=== PATIENT | female | born 1935 | race Caucasian/White ===

== ENCOUNTER 2017-03-26 06:29 | Day surgery (SDC) | payer OTHER, MEDICARE ==
[2017-03-21 11:52] VITALS: BMI 30.2
[2017-03-26] MEDS: CIPROFLOXACIN 0.3% EYE DROPS 5 ML BOTTLE ONE ×3 (07:05→07:15)
[2017-03-26] MEDS: CYCLOPENTOLATE 2% OPHTH SOLN 2 ML BOTTLE ONE ×3 (07:05→07:15)
[2017-03-26] MEDS: PHENYLEPHRINE 2.5% OPHTH SOLN 15 ML BOTTLE ONE ×3 (07:05→07:15)
[2017-03-26] MEDS: TROPICAMIDE 1% OPHTH SOLN 15 ML BOTTLE ONE ×3 (07:05→07:15)
[2017-03-26] MEDS ORDERED: LIDOCAINE 1% P/F 10 MG/ML VIAL ONE (07:20)
[2017-03-26] MEDS ORDERED: LIDOCAINE HCL 2% JELLY 10 ML CARTRIDGE ONE (07:20)
[2017-03-26] MEDS ORDERED: TETRACAINE 0.5% OPHTH SOLN 2 ML BOTTLE ONE (07:20)
[2017-03-26] MEDS ORDERED: CARBACHOL 0.01% INTRA-OCULAR 1.5 ML VIAL ONE (07:21)
[2017-03-26] MEDS ORDERED: ACETYLCHOLINE 1:100 INTRA-OCUL 20 MG/2 ML KIT ONE (07:21)
[2017-03-26] MEDS ORDERED: NEO/POLYMYX B SULF/DEXAMETH OPHTHALMIC 5ML BOTTLE ONE (07:31)
[2017-03-26] MEDS ORDERED: BSS (NA/CA/MG/K) BALANCED SALT SOLUTION OPHTH SOLN 15 ML BOTTLE ONE (07:31)
[2017-03-26] MEDS ORDERED: MIDAZOLAM HCL 2 MG/2 ML SINGLE DOSE VIAL ONE ×3 (08:23→09:11)
[2017-03-26] MEDS ORDERED: PROPOFOL 20 ML ONE (09:12)
[2017-03-26 11:51] VITALS: TEMP 97.7
[2017-03-26 12:03] VITALS: PULSE 61
[2017-03-26 12:07] VITALS: BP 110/48
--- NOTE | 2017-03-26 13:39 | OP ---
DATE OF OPERATION: 03/26/2017 OPERATIVE PROCEDURE: Lens phacoemulsification with posterior chamber intraocular lens placement right eye. PREOPERATIVE DIAGNOSIS: Visually significant cataract of right eye. POSTOPERATIVE DIAGNOSIS: Visually significant cataract of right eye. SURGEON: Lex Alejandro M.D. ANESTHESIA: MAC PROCEDURE: The patient was brought to the operating room and placed under monitored anesthesia care by Anesthesia. A drop of tetracaine was then placed over the right eye. The patient was then prepped and draped in the usual sterile manner. A speculum was then placed over the right eye. The eye was then well irrigated with copious amounts of BSS (balanced salt solution). The operating microscope was then moved into position. A paracentesis was performed using a 15 degree blade. At this point 0.5 mL of 1% preservative-free lidocaine was injected into the anterior chamber. Amvisc Plus was then injected into the anterior chamber. A clear corneal incision was then formed using a 2.2 mm keratome. A capsulorrhexis was then performed in a continuous circular fashion beginning with a cystotome and completed with Utrata forceps. Hydrodissection was then performed using BSS on a cannula. The phaco probe was then introduced through the corneal wound and the cataract was removed using the phaco chop technique. Approximately 3 seconds of absolute phaco time was used. The remaining cortex was then removed using irrigation and aspiration with an I/A probe. The capsule was then filled with regular Amvisc and the capsule was noted to be intact. A previously selected foldable posterior chamber intraocular lens was then injected into the capsule through the corneal wound using a lens injector. It was then dialed into position using a Sinskey hook. The Amvisc was then removed using irrigation and aspiration. Miostat was then injected through the paracentesis to constrict the pupil. The paracentesis and corneal wound were then hydrated and noted to be watertight. A drop of Maxitrol was then placed over the eye. The speculum was removed and clear shield was taped over the eye. The patient tolerated the procedure well and there were no surgical complications. The patient was asked to follow up in my office the next day. LEX ALEJANDRO M.D. LINUS/[id number]
== END 2017-03-26 10:15 | disposition home or self-care (01) ==
LOC: FASU 06:29
PROVIDERS: ATTEND Ophthalmology
PROC: 08RJ3JZ Replacement of Right Lens with Synthetic Substitute, Percutaneous Approach (ICD-10-PCS; principal; 2017-03-26 08:32)
DX: H26.8 Other specified cataract (principal)

== ENCOUNTER 2017-07-11 16:18 | Inpatient (IN) | payer OTHER, MEDICARE ==
--- NOTE | 2017-07-11 16:21 | PDOC ---
History of Present Illness - General History Source: Patient Exam Limitations: No Limitations - History of Present Illness Initial Comments: 07/11/17 17:47 History is limited due to pt's severe dementia. Most of history from pt's . The patient is an 82 year old female with past medical history of hypertension, basal cell carcinoma, and dementia who arrives to the ED from her PCPs office for complaints of palpitations and found to have HR 151 in the office. As per the patients , they had traveled to [place] by car and when they were walking on the beach the patient felt very strong palpitations that almost made her pass out 4 days ago. He also notes increasing LE edema over the last 4 days as well. In her PCPs office, the patient was noted to be in atrial flutter. The patients denies any history of chest pain or similar symptoms in the past and states patient can usually communicate certain symptoms such as pain. PCP: Dr. Abel Emerson <Lisseth Kaur - Last Filed: 07/11/17 20:56> <Deidra Mcclelland - Last Filed: 07/11/17 22:19> - General Chief Complaint: Chest Pain Stated Complaint: EKG CHANGES FROM PMD'S OFFICE Time Seen by Provider: 07/11/17 16:21 Past History <Lisseth Kaur - Last Filed: 07/11/17 20:56> - Past Medical History Anemia: No Asthma: No Cancer: Yes (BASAL CELL CA TOP OF HEAD) Cardiac Disorders: No CVA: No COPD: No CHF: No Dementia: Yes (ALZHEIMERS) Diabetes: No GI Disorders: No Disorders: No HTN: Yes Hypercholesterolemia: No Liver Disease: No Seizures: No Thyroid Disease: No - Surgical History Abdominal Surgery: No Appendectomy: No Cardiac Surgery: No Cholecystectomy: No Lung Surgery: No Neurologic Surgery: No Orthopedic Surgery: No - Psycho/Social/Smoking Cessation Hx Anxiety: No Suicidal Ideation: No Smoking History: Never smoked Have you smoked in the past 12 months: No Hx Alcohol Use: No Drug/Substance Use Hx: No Substance Use Type: None Hx Substance Use Treatment: No <Deidra Mcclelland - Last Filed: 07/11/17 22:19> - Past Medical History Allergies/Adverse Reactions: Allergies Allergy/AdvReac Type Severity Reaction Status Date / Time Penicillins Allergy Intermediate Hives Verified 07/11/17 16:20 shellfish derived Allergy Intermediate Hives Verified 07/11/17 16:20 Sulfa (Sulfonamide Allergy Intermediate Hives Verified 07/11/17 16:20 Antibiotics) etodolac [From Lodine] Allergy Verified 07/11/17 16:20 Review of Systems - Review of Systems Able to Perform ROS?: Yes Comments:: 07/11/17 17:47 GENERAL/CONSTITUTIONAL: No fever or chills. No weakness. HEAD, EYES, EARS, NOSE AND THROAT: No change in vision. No ear pain or discharge. No sore throat. CARDIOVASCULAR: Present: palpitations No chest pain or shortness of breath. RESPIRATORY: No cough, wheezing, or hemoptysis. GASTROINTESTINAL: No nausea, vomiting, diarrhea or constipation. GENITOURINARY: No dysuria, frequency, or change in urination. MUSCULOSKELETAL: +LE edema. No neck or back pain. SKIN: No rash NEUROLOGIC: No headache, vertigo, loss of consciousness, or change in strength/ sensation. ENDOCRINE: No increased thirst. No abnormal weight change. HEMATOLOGIC/LYMPHATIC: No anemia, easy bleeding, or history of blood clots. ALLERGIC/IMMUNOLOGIC: No hives or skin allergy. All Other Systems: Reviewed and Negative <Lisseth Kaur - Last Filed: 07/11/17 20:56> *Physical Exam - Vital Signs Last Vital Signs Temp Pulse Resp BP Pulse Ox 98.7 F 114 H 18 106/67 99 07/11/17 16:19 07/11/17 17:21 07/11/17 17:00 07/11/17 17:21 07/11/17 17:21 - Physical Exam Comments: 07/11/17 17:48 GENERAL: AOx1 to name only, in no acute distress, can answer yes or no questions and follow simple commands HEAD: No signs of trauma EYES: PERRLA, EOMI, sclera anicteric, conjunctiva clear ENT: Auricles normal inspection, hearing grossly normal, nares patent, oropharynx clear without exudates. Moist mucosa NECK: Normal ROM, supple, no lymphadenopathy, JVD, or masses LUNGS: Diminished breath sounds at right lung base. No wheezes, and no crackles HEART: Tachycardic to 151, regular, no murmurs, rubs or gallops ABDOMEN: Soft, nontender, normoactive bowel sounds. No guarding, no rebound. No masses EXTREMITIES: 1+ edema of bilateral lower extremities, left greater than right. Normal range of motion.. No clubbing or cyanosis. No cords, erythema, or tenderness NEUROLOGICAL: Normal speech, cranial nerves intact, negative pronator drift, 5/ 5 strength in all 4 extremities, normal sensation to light touch in all 4 extremities, normal cerebellar exam, normal gait, normal reflexes and tone SKIN: Warm, Dry, normal turgor, no rashes or lesions noted. <Lisseth Kaur - Last Filed: 07/11/17 20:56> Heart Score/ECG Review #1 07/11/17 1637: Atrial flutter with 2:1 block, rate 151, normal axis. EKG machine reading inferior PABLO as "STEMI" but these are likely rate dependent elevations. Compared to EKG from 03/24/17, Flutter is new, pt previously in sinus rhythm. #2 07/11/17 17:27 Atrial flutter with variable block, rate 111, normal axis, no PABLO (post diltiazem) <Deidra Mcclelland - Last Filed: 07/11/17 22:19> ED Treatment Course - LABORATORY CBC & Chemistry Diagram: 07/11/17 16:40 07/11/17 16:40 - ADDITIONAL ORDERS Additional order review: Laboratory Results 07/11/17 07/11/17 07/11/17 16:40 16:40 16:40 INR 1.05 PTT (Actin FS) Sodium 136 Potassium 5.1 Chloride 102 Carbon Dioxide 23 Anion Gap 11 BUN 43 H D Creatinine 1.5 H D Creat Clearance w eGFR 33.33 Random Glucose 94 Calcium 9.2 Magnesium 1.9 D Total Bilirubin 0.5 D AST 28 D ALT 45 H D Alkaline Phosphatase 86 D Creatine Kinase 63 Total Protein 7.3 Albumin 3.5 Anti-A Titer Cancelled Blood Type Cancelled Antibody Screen Cancelled Spec Expiration Date Cancelled 07/11/17 16:40 INR PTT (Actin FS) 25.4 L Sodium Potassium Chloride Carbon Dioxide Anion Gap BUN Creatinine Creat Clearance w eGFR Random Glucose Calcium Magnesium Total Bilirubin AST ALT Alkaline Phosphatase Creatine Kinase Total Protein Albumin Anti-A Titer Blood Type Antibody Screen Spec Expiration Date 07/11/17 16:40 RBC 3.59 L MCV 90.6 MCHC 33.7 RDW 12.6 MPV 8.4 D Neutrophils % 66.5 Lymphocytes % 21.3 Monocytes % 8.9 Eosinophils % 2.3 Basophils % 1.0 - RADIOLOGY Radiograph Interpretation: 07/11/17 20:30 Venous doppler exam of bilateral lower extremities as reviewed by Dr. Garcia reports DVT in left leg with involvement of common femoral vein and greater saphenous vein. The right leg is negative for DVT. 07/11/17 20:56 CT/CTA of Chest as reviewed by Dr. Garcia reports no evidence of PE. Possible mild cardiomegaly and thyromegaly. - Medications Given in the ED: ED Medications Discontinued Medications Generic Name Dose Route Start Last Admin Trade Name Sylvesterq PRN Reason Stop Dose Admin Diltiazem HCl 10 mg 07/11/17 16:34 07/11/17 16:45 Cardizem Injection - IVPUSH 07/11/17 16:35 10 mg ONCE ONE Administration Diltiazem HCl 30 mg 07/11/17 16:50 07/11/17 17:32 Cardizem - PO 07/11/17 16:51 30 mg ONCE ONE Administration Sodium Chloride 500 ml 07/11/17 16:51 07/11/17 16:45 Normal Saline - IV 07/11/17 16:52 500 ml ONCE ONE Administration <Lisseth Kaur - Last Filed: 07/11/17 20:56> - LABORATORY CBC & Chemistry Diagram: 07/11/17 16:40 07/11/17 16:40 <Deidra Mcclelland - Last Filed: 07/11/17 22:19> Medical Decision Making - Critical Care Time Total Critical Care Time (minutes): 40 Critical Care Statement: The care of this patient involved high complexity decision making to prevent further life threatening deterioration of the patient 's condition and/or to evaluate & treat vital organ system(s) failure or risk of failure. - Medical Decision Making 07/11/17 17:29 82yo F hx HTN, dementia, hypothyroidism p/w atrial flutter with 2:1 block with a rate 151, good response to diltiazem with HR down to 90s-110s. Pt ordered for PO dilitiazem. Pt denies CP or SOB. Exam with tachycardia and L>R LE edema. Unclear etiology of atrial flutter but differential is wide, including but not limited to DVT and PE, CHF, ACS, or infection such as PNA or UTI. 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 Ward for further management. <Deidra Mcclelland - Last Filed: 07/11/17 22:19> *DC/Admit/Observation/Transfer - Attestations Scribe Attestion: 07/11/17 17:48 Documentation prepared by Lisseth Kaur, acting as medical authorization specialist for Deidra Mcclelland MD. <Lisseth Kaur - Last Filed: 07/11/17 20:56> - Attestations Physician Attestion: 07/11/17 22:18 I, Dr. Deidra Mcclelland MD, attest that this document has been prepared under my direction and personally reviewed by me in its entirety. I further attest, that it accurately reflects all work, treatment, procedures and medical decision -making performed by me. <Deidra Mcclelland - Last Filed: 07/11/17 22:19> Diagnosis at time of Disposition: Atrial fibrillation with RVR DVT (deep venous thrombosis) Qualifiers: Qualified Code(s): I82.412 - Acute embolism and thrombosis of left femoral vein - Discharge Dispostion Condition at time of disposition: Fair - Referrals Referrals: Abel Emerson MD [Primary Care Provider] -
[2017-07-11] MEDS ORDERED: dilTIAZem HCL 50 MG/10 ML - 10 ML VIAL IVPUSH ONE ×2 (16:34→17:54)
[2017-07-11] MEDS ORDERED: dilTIAZem HCL 50 MG/10 ML - 10 ML VIAL ONE (16:41)
[2017-07-11] MEDS ORDERED: dilTIAZem HCL 30 MG TABLET (FP) PO ONE (16:50)
[2017-07-11] MEDS ORDERED: SODIUM CHLORIDE 0.9% 1000 ML INFUS.BAG IV ONE (16:51)
[2017-07-11 16:59] VITALS: BMI 28.3
[2017-07-11] MEDS ORDERED: dilTIAZem HCL 30 MG TABLET (FP) ONE ×2 (17:11→21:27)
[2017-07-11 17:20] LABS: EOSINOPHIL 2.3 % (0-4.5); MCH 30.5 pg (25.7-33.7); MCHC 33.7 g/dl (32.0-36.0); MEAN CELL VOLUME 90.6 fl (80-96); MEAN PLT VOLUME 8.4 fl (7.5-11.1); NEUTROPHILS 66.5 % (42.8-82.8); PLATELET COUNT 189 K/MM3 (134-434); RDW 12.6 % (11.6-15.6); WHITE BLOOD COUNT 7.9 K/mm3 (4.0-10.8)
[2017-07-11 17:34] LABS: ALBUMIN 3.5 g/dl (3.5-5.0); ALK PHOS 86 U/L (32-92); ANION GAP 11 (8-16); BILIRUBIN,TOTAL 0.5 mg/dl (0.2-1.0); CALCIUM 9.2 mg/dl (8.4-10.2); CO2 23 mmol/L (22-28); CPK 63 IU/L (26-192); CREATININE 1.5 mg/dl (0.6-1.3); GLUCOSE,RANDOM 94 mg/dl (74-106); MAGNESIUM 1.9 mg/dL (1.8-2.4); SGOT/AST 28 U/L (10-42); SGPT/ALT 45 U/L (10-40); TOT PROT 7.3 g/dl (6.4-8.3)
[2017-07-11 17:38] LABS: INR 1.05 (0.82-1.09); PROTHROMBIN TIME (PATIENT) 11.7 SEC (10.2-13.0)
[2017-07-11 18:02] LABS: TROPONIN I (DFP) < 0.03 ng/ml (0.03-0.50)
[2017-07-11 19:04] LABS: PH,URINE 5.5 (4.5-8); URINE BILIRUBIN Negative (NEGATIVE); URINE GLUCOSE (UA) Negative (NEGATIVE); URINE KETONE Negative (NEGATIVE); URINE NITRITE Positive (NEGATIVE); URINE PROTEIN Negative (NEGATIVE); URINE UROBILINOGEN 0.2 (0.2-1.0)
[2017-07-11 19:05] LABS: URINE APPEARANCE CLOUDY; URINE BLOOD Trace-intact (NEGATIVE); URINE COLOR YELLOW; URINE LEUK ESTERASE 2+ (NEGATIVE)
[2017-07-11] MEDS ORDERED: ENOXAPARIN NA (PORCINE) 60 MG/0.6 ML DISP.SYRIN SQ ONE ×2 (19:15→19:17)
[2017-07-11] MEDS: ENOXAPARIN NA (PORCINE) 60 MG/0.6 ML DISP.SYRIN SQ SCH (19:30)
[2017-07-11 19:43] LABS: THYROID STIMULATING HORMONE 1.33 uIU/ml (0.358-3.74)
[2017-07-11 19:57] LABS: URINE RBC 0-2 /hpf (0-3); URINE WBC 15-25 (3-5)
[2017-07-11 19:58] LABS: URINE BACTERIA MODERATE /hpf (NEGATIVE)
[2017-07-11] MEDS ORDERED: METOPROLOL TARTRATE 5 MG/5 ML VIAL ONE ×2 (20:32→21:39)
[2017-07-11] MEDS ORDERED: METOPROLOL TARTRATE 5 MG/5 ML VIAL IVPUSH ONE ×2 (20:38→21:33)
[2017-07-11] MEDS ORDERED: OLANZapine 5 MG TABLET PO ONE (20:40)
--- NOTE | 2017-07-11 20:53 | PDOC ---
*Physical Exam - Vital Signs Last Vital Signs Temp Pulse Resp BP Pulse Ox 98.7 F 154 H 18 131/88 98 07/11/17 16:19 07/11/17 20:38 07/11/17 19:36 07/11/17 20:38 07/11/17 19:36 <Lisseth Kaur - Last Filed: 07/11/17 21:01> - Vital Signs Last Vital Signs Temp Pulse Resp BP Pulse Ox 98.7 F 154 H 18 131/88 98 07/11/17 16:19 07/11/17 20:38 07/11/17 19:36 07/11/17 20:38 07/11/17 19:36 <Deepika Roman - Last Filed: 07/12/17 06:47> ED Treatment Course - LABORATORY CBC & Chemistry Diagram: 07/11/17 16:40 07/11/17 16:40 - ADDITIONAL ORDERS Additional order review: Laboratory Results 07/11/17 07/11/17 07/11/17 18:53 18:53 17:45 INR PTT (Actin FS) Sodium Potassium Chloride Carbon Dioxide Anion Gap BUN Creatinine Creat Clearance w eGFR Random Glucose Calcium Magnesium Total Bilirubin AST ALT Alkaline Phosphatase Creatine Kinase Troponin I B-Natriuretic Peptide Total Protein Albumin TSH Urine Color Yellow Urine Appearance Cloudy Urine pH 5.5 Ur Specific [place] 1.010 Urine Protein Negative Urine Glucose (UA) Negative Urine Ketones Negative Urine Blood Trace-intact H Urine Nitrite Positive Urine Bilirubin Negative Urine Urobilinogen 0.2 Ur Leukocyte Esterase 2+ H Urine RBC 0-2 Urine WBC 15-25 Ur Epithelial Cells Few Urine Bacteria Moderate Stool Occult Blood Negative Anti-A Titer Blood Type A POSITIVE Antibody Screen Spec Expiration Date 07/11/17 07/11/17 07/11/17 17:40 16:47 16:40 INR PTT (Actin FS) Sodium 136 Potassium 5.1 Chloride 102 Carbon Dioxide 23 Anion Gap 11 BUN 43 H D Creatinine 1.5 H D Creat Clearance w eGFR 33.33 Random Glucose 94 Calcium 9.2 Magnesium 1.9 D Total Bilirubin 0.5 D AST 28 D ALT 45 H D Alkaline Phosphatase 86 D Creatine Kinase 63 Troponin I Cancelled B-Natriuretic Peptide 5711.16 H Total Protein 7.3 Albumin 3.5 TSH 1.33 D Urine Color Urine Appearance Urine pH Ur Specific [place] Urine Protein Urine Glucose (UA) Urine Ketones Urine Blood Urine Nitrite Urine Bilirubin Urine Urobilinogen Ur Leukocyte Esterase Urine RBC Urine WBC Ur Epithelial Cells Urine Bacteria Stool Occult Blood Anti-A Titer Blood Type A POSITIVE Antibody Screen Negative Spec Expiration Date 07/11/17 07/11/17 07/11/17 16:40 16:40 16:40 INR 1.05 PTT (Actin FS) 25.4 L Sodium Potassium Chloride Carbon Dioxide Anion Gap BUN Creatinine Creat Clearance w eGFR Random Glucose Calcium Magnesium Total Bilirubin AST ALT Alkaline Phosphatase Creatine Kinase Troponin I B-Natriuretic Peptide Total Protein Albumin TSH Urine Color Urine Appearance Urine pH Ur Specific [place] Urine Protein Urine Glucose (UA) Urine Ketones Urine Blood Urine Nitrite Urine Bilirubin Urine Urobilinogen Ur Leukocyte Esterase Urine RBC Urine WBC Ur Epithelial Cells Urine Bacteria Stool Occult Blood Anti-A Titer Cancelled Blood Type Cancelled Antibody Screen Cancelled Spec Expiration Date Cancelled 07/11/17 16:40 RBC 3.59 L MCV 90.6 MCHC 33.7 RDW 12.6 MPV 8.4 D Neutrophils % 66.5 Lymphocytes % 21.3 Monocytes % 8.9 Eosinophils % 2.3 Basophils % 1.0 - RADIOLOGY Radiograph Interpretation: 07/11/17 20:56 CT/CTA of Chest as reviewed by Dr. Garcia reports no evidence of PE. Possible mild cardiomegaly and thyromegaly. - Medications Given in the ED: ED Medications Discontinued Medications Generic Name Dose Route Start Last Admin Trade Name Freq PRN Reason Stop Dose Admin Diltiazem HCl 10 mg 07/11/17 16:34 07/11/17 16:45 Cardizem Injection - IVPUSH 07/11/17 16:35 10 mg ONCE ONE Administration Diltiazem HCl 30 mg 07/11/17 16:50 07/11/17 17:32 Cardizem - PO 07/11/17 16:51 30 mg ONCE ONE Administration Diltiazem HCl 10 mg 07/11/17 17:54 07/11/17 18:10 Cardizem Injection - IVPUSH 07/11/17 17:55 10 mg ONCE ONE Administration Metoprolol Tartrate 5 mg 07/11/17 20:38 07/11/17 20:38 Lopressor Injection - IVPUSH 07/11/17 20:39 5 mg NOW ONE Administration Sodium Chloride 500 ml 07/11/17 16:51 07/11/17 16:45 Normal Saline - IV 07/11/17 16:52 500 ml ONCE ONE Administration <Lisseth Kaur - Last Filed: 07/11/17 21:01> - LABORATORY CBC & Chemistry Diagram: 07/11/17 16:40 07/11/17 16:40 - ADDITIONAL ORDERS Additional order review: Laboratory Results 07/11/17 07/11/17 07/11/17 18:53 18:53 17:45 INR PTT (Actin FS) Sodium Potassium Chloride Carbon Dioxide Anion Gap BUN Creatinine Creat Clearance w eGFR Random Glucose Calcium Magnesium Total Bilirubin AST ALT Alkaline Phosphatase Creatine Kinase Troponin I B-Natriuretic Peptide Total Protein Albumin TSH Urine Color Yellow Urine Appearance Cloudy Urine pH 5.5 Ur Specific [place] 1.010 Urine Protein Negative Urine Glucose (UA) Negative Urine Ketones Negative Urine Blood Trace-intact H Urine Nitrite Positive Urine Bilirubin Negative Urine Urobilinogen 0.2 Ur Leukocyte Esterase 2+ H Urine RBC 0-2 Urine WBC 15-25 Ur Epithelial Cells Few Urine Bacteria Moderate Stool Occult Blood Negative Anti-A Titer Blood Type A POSITIVE Antibody Screen Spec Expiration Date 07/11/17 07/11/17 07/11/17 17:40 16:47 16:40 INR PTT (Actin FS) Sodium 136 Potassium 5.1 Chloride 102 Carbon Dioxide 23 Anion Gap 11 BUN 43 H D Creatinine 1.5 H D Creat Clearance w eGFR 33.33 Random Glucose 94 Calcium 9.2 Magnesium 1.9 D Total Bilirubin 0.5 D AST 28 D ALT 45 H D Alkaline Phosphatase 86 D Creatine Kinase 63 Troponin I Cancelled B-Natriuretic Peptide 5711.16 H Total Protein 7.3 Albumin 3.5 TSH 1.33 D Urine Color Urine Appearance Urine pH Ur Specific [place] Urine Protein Urine Glucose (UA) Urine Ketones Urine Blood Urine Nitrite Urine Bilirubin Urine Urobilinogen Ur Leukocyte Esterase Urine RBC Urine WBC Ur Epithelial Cells Urine Bacteria Stool Occult Blood Anti-A Titer Blood Type A POSITIVE Antibody Screen Negative Spec Expiration Date 07/11/17 07/11/17 07/11/17 16:40 16:40 16:40 INR 1.05 PTT (Actin FS) 25.4 L Sodium Potassium Chloride Carbon Dioxide Anion Gap BUN Creatinine Creat Clearance w eGFR Random Glucose Calcium Magnesium Total Bilirubin AST ALT Alkaline Phosphatase Creatine Kinase Troponin I B-Natriuretic Peptide Total Protein Albumin TSH Urine Color Urine Appearance Urine pH Ur Specific [place] Urine Protein Urine Glucose (UA) Urine Ketones Urine Blood Urine Nitrite Urine Bilirubin Urine Urobilinogen Ur Leukocyte Esterase Urine RBC Urine WBC Ur Epithelial Cells Urine Bacteria Stool Occult Blood Anti-A Titer Cancelled Blood Type Cancelled Antibody Screen Cancelled Spec Expiration Date Cancelled 07/11/17 16:40 RBC 3.59 L MCV 90.6 MCHC 33.7 RDW 12.6 MPV 8.4 D Neutrophils % 66.5 Lymphocytes % 21.3 Monocytes % 8.9 Eosinophils % 2.3 Basophils % 1.0 - Medications Given in the ED: ED Medications Discontinued Medications Generic Name Dose Route Start Last Admin Trade Name Sylvesterq PRN Reason Stop Dose Admin Diltiazem HCl 10 mg 07/11/17 16:34 07/11/17 16:45 Cardizem Injection - IVPUSH 07/11/17 16:35 10 mg ONCE ONE Administration Diltiazem HCl 30 mg 07/11/17 16:50 07/11/17 17:32 Cardizem - PO 07/11/17 16:51 30 mg ONCE ONE Administration Diltiazem HCl 10 mg 07/11/17 17:54 07/11/17 18:10 Cardizem Injection - IVPUSH 07/11/17 17:55 10 mg ONCE ONE Administration Metoprolol Tartrate 5 mg 07/11/17 20:38 07/11/17 20:38 Lopressor Injection - IVPUSH 07/11/17 20:39 5 mg NOW ONE Administration Sodium Chloride 500 ml 07/11/17 16:51 07/11/17 16:45 Normal Saline - IV 07/11/17 16:52 500 ml ONCE ONE Administration <Deepika Roman - Last Filed: 07/12/17 06:47> Progress Note - Progress Note Progress Note: Documentation has been prepared under my direction and personally reviewed by me in its entirety. I attest that this documented accurately reflects all work, treatment, procedures and medical decision making <Deepika Roman - Last Filed: 07/12/17 06:47> Medical Decision Making - Medical Decision Making 07/11/17 21:01 [facility] Call returned promptly and case was discussed. <Lisseth Kaur - Last Filed: 07/11/17 21:01> - Medical Decision Making Care of this patient received from Dr. Mustafa. CT angiogram of the chest was performed to rule out pulmonary embolism. No evidence of pulmonary embolus found on this study. Patient continued to have A. fib/flutter at a rapid ventricular response( ranging from 110-150/per minute). She did not appear to be responsive to diltiazem either orally or IV. Patient given metoprolol 5 mg IV followed by an additional 5 mg IV after approximately one half hour. Repeat to be better response with the beta yasir. [facility] be [facility] to [facility] telemetry bed <Deepika Roman - Last Filed: 07/12/17 06:47> *DC/Admit/Observation/Transfer - Attestations Scribe Attestion: 07/11/17 20:57 Documentation prepared by Lisseth Kaur, acting as director medical economics for Deepika Roman MD. <Lisseth Kaur - Last Filed: 07/11/17 21:01> - Discharge Dispostion Admit: Yes <Deepika Roman - Last Filed: 07/12/17 06:47> Diagnosis at time of Disposition: Atrial fibrillation with RVR DVT (deep venous thrombosis) Qualifiers: DVT location: lower extremity Affected thrombotic vein of extremity: femoral Chronicity: acute Laterality: left Qualified Code(s): I82.412 - Acute embolism and thrombosis of left femoral vein - Discharge Dispostion Condition at time of disposition: Fair - Referrals - Patient Instructions - Post Discharge Activity
[2017-07-11] MEDS ORDERED: dilTIAZem HCL 30 MG TABLET (FP) PO SCH (22:00)
--- NOTE | 2017-07-11 23:30 | HP ---
CHIEF COMPLAINT: palpitations PCP: [facility] HISTORY OF PRESENT ILLNESS: This is an 82 year old female with a past medical history significant for HTN and Dementia presented to the ED with palpitations x 4 days. reported to ED staff that [place] had traveled to [place] and [place] the patient felt very strong palpitations that almost made her pass out 4 days ago. He denies any report of chest pain or SOB. Pt is confused on exam and unable to respond to ROS. Daughter is present and provided much of the information. ER course was notable for: (1) HR 150s upon arrival, ECG 2:1 flutter tx with cardizem 10mg IVP and 30mg po (2) US + DVT (3) CT no PE Recent Travel: [place] PAST MEDICAL HISTORY: HTN Dementia Basal Cell Carcinoma PAST SURGICAL HISTORY: appendectomy Age 20 B/L cataract Social History: Smoking: daughter denies Alcohol: 1/2 glass wine with dinner occasionally Drugs: daughter denies Family History: mother heart disease late 70s father with DM, age 65 sister comps hip sx brother , colon CA, mets to pancreas sister alive, no PMH Allergies Penicillins Allergy (Intermediate, Verified 07/11/17 16:20) Hives shellfish derived Allergy (Intermediate, Verified 07/11/17 16:20) Hives Sulfa (Sulfonamide Antibiotics) Allergy (Intermediate, Verified 07/11/17 16:20) Hives etodolac [From [facility]] Allergy (Verified 07/11/17 16:20) HOME MEDICATIONS: donepezil 10mg QD memantine 10mg BID zestril 30mg QD zyprexa 5mg QPM REVIEW OF SYSTEMS CONSTITUTIONAL: Absent: fever, chills, diaphoresis, generalized weakness, malaise, loss of appetite, weight change HEENT: Absent: rhinorrhea, nasal congestion, throat pain, throat swelling, difficulty swallowing, mouth swelling, ear pain, eye pain, visual changes CARDIOVASCULAR: palpitations, irregular heart rate Absent: chest pain, syncope, lightheadedness, peripheral edema RESPIRATORY: Absent: cough, shortness of breath, dyspnea with exertion, orthopnea, wheezing, stridor, hemoptysis GASTROINTESTINAL: Absent: abdominal pain, abdominal distension, nausea, vomiting, diarrhea, constipation, melena, hematochezia GENITOURINARY: Absent: dysuria, frequency, urgency, hesitancy, hematuria, flank pain, genital pain MUSCULOSKELETAL: Absent: myalgia, arthralgia, joint swelling, back pain, neck pain SKIN: Absent: rash, itching, pallor HEMATOLOGIC/IMMUNOLOGIC: Absent: easy bleeding, easy bruising, lymphadenopathy, frequent infections ENDOCRINE: Absent: unexplained weight gain, unexplained weight loss, heat intolerance, cold intolerance NEUROLOGIC: Absent: headache, focal weakness or paresthesias, dizziness, unsteady gait, seizure, mental status changes, bladder or bowel incontinence PSYCHIATRIC: Absent: anxiety, depression, suicidal or homicidal ideation, hallucinations. PHYSICAL EXAMINATION Vital Signs - 24 hr 3 07/11/17 07/11/17 07/11/17 16:19 16:45 17:00 Temperature 98.7 F Pulse Rate 151 H Pulse Rate [ 101 H Apical] Respiratory 20 18 Rate Blood Pressure 126/81 126/81 Blood Pressure 90/47 [Arm] O2 Sat by Pulse 99 99 Oximetry (%) 3 07/11/17 07/11/17 07/11/17 17:21 17:55 18:21 Temperature Pulse Rate Pulse Rate [ 114 H 146 H 126 H Apical] Respiratory 18 19 Rate Blood Pressure Blood Pressure 106/67 117/72 109/84 [Arm] O2 Sat by Pulse 99 96 98 Oximetry (%) 07/11/17 07/11/17 07/11/17 19:36 20:38 21:21 Temperature Pulse Rate 154 H Pulse Rate [ 110 H 124 H Apical] Respiratory 18 19 Rate Blood Pressure 131/88 Blood Pressure 113/88 121/75 [Arm] O2 Sat by Pulse 98 Oximetry (%) 07/11/17 07/11/17 21:44 22:44 Temperature 98.3 F Pulse Rate 124 H 116 H Pulse Rate [ Apical] Respiratory 18 Rate Blood Pressure 121/75 108/73 Blood Pressure [Arm] O2 Sat by Pulse 97 Oximetry (%) GENERAL: Awake, alert, and fully oriented, in no acute distress. HEAD: Normal with no signs of trauma. EYES: Pupils equal, round and reactive to light, extraocular movements intact, sclera anicteric, conjunctiva clear. No lid lag. EARS, NOSE, THROAT: Ears normal, nares patent, oropharynx clear without exudates. Moist mucous membranes. NECK: Normal range of motion, supple without lymphadenopathy, JVD, or masses. LUNGS: Breath sounds equal, clear to auscultation bilaterally. No wheezes, and no crackles. No accessory muscle use. HEART: Irregular rate and rhythm, normal S1 and S2 without murmur, rub or gallop. ABDOMEN: Soft, nontender, not distended, normoactive bowel sounds, no guarding, no rebound, no masses. No hepatomegaly or splenomegaly. MUSCULOSKELETAL: Normal range of motion at all joints. No bony deformities or tenderness. No CVA tenderness. UPPER EXTREMITIES: 2+ pulses, warm, well-perfused. No cyanosis. No clubbing. No peripheral edema. LOWER EXTREMITIES: 2+ pulses, warm, well-perfused. No calf tenderness. tr peripheral edema right, 1+ left NEUROLOGICAL: Cranial nerves II-XII intact. Normal speech. Normal gait. PSYCHIATRIC: Cooperative. Good eye contact. Appropriate mood and affect. SKIN: Warm, dry, normal turgor, no rashes or lesions noted, normal capillary refill. Laboratory Results - last 24 hr 3 07/11/17 07/11/17 07/11/17 16:40 16:40 16:40 WBC 7.9 D RBC 3.59 L Hgb 10.9 Hct 32.5 MCV 90.6 MCH 30.5 MCHC 33.7 RDW 12.6 Plt Count 189 D MPV 8.4 D Neutrophils % 66.5 Lymphocytes % 21.3 Monocytes % 8.9 Eosinophils % 2.3 Basophils % 1.0 INR PTT (Actin FS) 25.4 L Sodium Potassium Chloride Carbon Dioxide Anion Gap BUN Creatinine Creat Clearance w eGFR Random Glucose Calcium Magnesium Total Bilirubin AST ALT Alkaline Phosphatase Creatine Kinase Troponin I B-Natriuretic Peptide Total Protein Albumin TSH Urine Color Urine Appearance Urine pH Ur Specific [place] Urine Protein Urine Glucose (UA) Urine Ketones Urine Blood Urine Nitrite Urine Bilirubin Urine Urobilinogen Ur Leukocyte Esterase Urine RBC Urine WBC Ur Epithelial Cells Urine Bacteria Stool Occult Blood Anti-A Titer Cancelled Blood Type Cancelled Antibody Screen Cancelled Spec Expiration Date Cancelled 3 07/11/17 07/11/17 07/11/17 07/11/17 16:40 16:40 16:47 18:53 WBC RBC Hgb Hct MCV MCH MCHC RDW Plt Count MPV Neutrophils % Lymphocytes % Monocytes % Eosinophils % Basophils % INR 1.05 PTT (Actin FS) Sodium 136 Potassium 5.1 Chloride 102 Carbon Dioxide 23 Anion Gap 11 BUN 43 H D Creatinine 1.5 H D Creat Clearance w eGFR 33.33 Random Glucose 94 Calcium 9.2 Magnesium 1.9 D Total Bilirubin 0.5 D AST 28 D ALT 45 H D Alkaline Phosphatase 86 D Creatine Kinase 63 Troponin I Cancelled B-Natriuretic Peptide 5711.16 H Total Protein 7.3 Albumin 3.5 TSH 1.33 D Urine Color Urine Appearance Urine pH Ur Specific [place] Urine Protein Urine Glucose (UA) Urine Ketones Urine Blood Urine Nitrite Urine Bilirubin Urine Urobilinogen Ur Leukocyte Esterase Urine RBC Urine WBC Ur Epithelial Cells Urine Bacteria Stool Occult Blood Negative Anti-A Titer Blood Type Antibody Screen Spec Expiration Date 3 Urine Color Yellow 07/11/17 18:53 Urine Appearance Cloudy 07/11/17 18:53 Urine pH 5.5 (4.5-8) 07/11/17 18:53 Ur Specific [place] 1.010 (1.005-1.025) 07/11/17 18:53 Urine Protein Negative (NEGATIVE) 07/11/17 18:53 Urine Glucose (UA) Negative (NEGATIVE) 07/11/17 18:53 Urine Ketones Negative (NEGATIVE) 07/11/17 18:53 Urine Blood Trace-intact (NEGATIVE) H 07/11/17 18:53 Urine Nitrite Positive (NEGATIVE) 07/11/17 18:53 Urine Bilirubin Negative (NEGATIVE) 07/11/17 18:53 Ur Leukocyte Esterase 2+ (NEGATIVE) H 07/11/17 18:53 Urine RBC 0-2 /hpf (0-3) 07/11/17 18:53 Urine WBC 15-25 (3-5) 07/11/17 18:53 Ur Epithelial Cells Few /HPF 07/11/17 18:53 Urine Bacteria Moderate /hpf (NEGATIVE) 07/11/17 18:53 Radiology Results CXR no acute infiltrate/effusion noted, final read pending CTA chest No CT evidence of pulmonary embolism possible mild cardiomegaly thyromegaly Doppler, BLE venous Left leg DVT is identified, common femoral vein and greater saphenous vein. Right leg demonstrates no evidence of DVT ECG 07/11/17 16:37 Atrial flutter with 2:1 AV conduction Vent rate 151 QTC 418 07/11/17 17:27 atrial flutter with variable AV block low voltage QRS Vent rate 111 QTC 383 ASSESSMENT/PLAN: 82yF with PMH Dementia, HTN, BCC presented to the ED with palpitations. She was noted to be in 2:1 flutter. Also found to have DVT. Aflutter - cardizem 30mg Q6h po, if HR consistently above 120s will give extra dose - cardiology consult in am - trend troponins - BNP elevated, no acute SOB and CXR clear but mild LE edema. cont to monitor and consider lasix if persist or worsens - will need terminal manager anticoagulation, defer treatment choice to cardiology DVT - given lovenox in ed, will renal dose daily - will need terminal manager anticoagulation Acute on chronicrenal failure - given IVF in ED, repeat Cr in am - hold ANGEL-i for now dementia - cont aricept, namenda and zyprexa DVT PPX - on full dose lovenox Dispo: Pt currently requires inpatient management of her emergent condition. Visit type - Emergency Visit Emergency Visit: Yes ED Registration Date: 07/11/17 Care time: The patient presented to the Emergency Department on the above date and was hospitalized for further evaluation of their emergent condition. - New Patient This patient is new to me today: Yes Date on this admission: 07/11/17 - Critical Care Critical Care patient: No
[2017-07-11 23:56] LABS: CPK 49 IU/L (26-192)
[2017-07-11 23:59] LABS: TROPONIN I (DFP) < 0.03 ng/ml (0.03-0.50)
[2017-07-12] MEDS ORDERED: dilTIAZem HCL 30 MG TABLET (FP) PO SCH ×2 (06:30→06:45)
[2017-07-12 08:16] LABS: EOSINOPHIL 2.6 % (0-4.5); MCHC 33.5 g/dl (32.0-36.0); MEAN CELL VOLUME 89.4 fl (80-96); MEAN PLT VOLUME 7.9 fl (7.5-11.1); PLATELET COUNT 199 K/MM3 (134-434); RDW 12.8 % (11.6-15.6); WHITE BLOOD COUNT 6.6 K/mm3 (4.0-10.8)
[2017-07-12 08:33] LABS: ANION GAP 9 (8-16); CO2 21 mmol/L (22-28); CPK 43 IU/L (26-192); CREATININE 1.4 mg/dl (0.6-1.3); GLUCOSE,RANDOM 106 mg/dl (74-106); MAGNESIUM 1.9 mg/dL (1.8-2.4); PHOSPHOROUS 3.5 mg/dl (2.5-4.6)
[2017-07-12 09:12] LABS: TROPONIN I (DFP) < 0.03 ng/ml (0.03-0.50)
[2017-07-12] MEDS: DONEPEZIL HCL 10 MG TABLET (FP) PO SCH (09:53)
[2017-07-12] MEDS: MEMANTINE HCL 10 MG TABLET (FP) PO SCH ×2 (09:54→21:10)
[2017-07-12] MEDS: ENOXAPARIN NA (PORCINE) 60 MG/0.6 ML DISP.SYRIN SQ SCH ×2 (09:54→21:15)
[2017-07-12] MEDS ORDERED: OLANZapine 5 MG TABLET PO SCH ×2 (10:00→18:00)
--- NOTE | 2017-07-12 10:54 | PN ---
Physical Exam: SUBJECTIVE: Patient seen and examined. Denies chest pain, palpitations, SOB. OBJECTIVE: Vital Signs Period Temp Pulse Resp BP Sys/See Pulse Ox Last 24 Hr 98.3 F-98.8 F 97-116 18-20 102-108/71-73 95-97 GENERAL: The patient is awake, alert, oriented to name only, in no acute distress. HEAD: Normal with no signs of trauma. EYES: PERRL, extraocular movements intact, sclera anicteric, conjunctiva clear. No ptosis. ENT: Ears normal, nares patent, oropharynx clear without exudates, moist mucous membranes. NECK: Trachea midline, full range of motion, supple. LUNGS: Breath sounds equal, clear to auscultation bilaterally, no wheezes, no crackles, no accessory muscle use. HEART: Irregular rhythm, S1, S2 without murmur, rub or gallop. ABDOMEN: Soft, nontender, nondistended, normoactive bowel sounds, no guarding, no rebound, no hepatosplenomegaly, no masses. EXTREMITIES: 2+ pulses, warm, well-perfused. Trace RLE edema, 1+ LLE edema. NEUROLOGICAL: Cranial nerves II through XII grossly intact. Normal speech, gait not observed. PSYCH: Normal mood, normal affect. SKIN: Warm, dry, normal turgor, no rashes or lesions noted Laboratory Results - last 24 hr 07/11/17 07/12/17 07/12/17 23:21 07:55 07:55 WBC 6.6 RBC 3.41 L Hgb 10.2 L Hct 30.5 L MCV 89.4 MCH 30.0 MCHC 33.5 RDW 12.8 Plt Count 199 MPV 7.9 Neutrophils % 60.0 Lymphocytes % 28.9 D Monocytes % 7.5 Eosinophils % 2.6 Basophils % 1.0 Sodium 137 Potassium 4.5 Chloride 107 Carbon Dioxide 21 L Anion Gap 9 BUN 35 H Creatinine 1.4 H Random Glucose 106 Calcium 9.0 Phosphorus 3.5 D Magnesium 1.9 Creatine Kinase 49 Troponin I < 0.03 L 07/12/17 07:55 WBC RBC Hgb Hct MCV MCH MCHC RDW Plt Count MPV Neutrophils % Lymphocytes % Monocytes % Eosinophils % Basophils % Sodium Potassium Chloride Carbon Dioxide Anion Gap BUN Creatinine Random Glucose Calcium Phosphorus Magnesium Creatine Kinase 43 Troponin I < 0.03 L Active Medications Generic Name Dose Route Start Last Admin Trade Name Fidencio PRN Reason Stop Dose Admin Diltiazem HCl 30 mg 07/12/17 06:45 Cardizem - PO Q6HPO [facility] Donepezil HCl 10 mg 07/12/17 10:00 07/12/17 09:53 Aricept - PO 10 mg DAILY [facility] Administration Enoxaparin Sodium 60 mg 07/11/17 19:15 07/11/17 19:30 Lovenox - SQ 60 mg ONCE [facility] Administration Enoxaparin Sodium 60 mg 07/12/17 10:00 07/12/17 09:54 Lovenox - SQ 60 mg DAILY [facility] Administration Memantine 10 mg 07/11/17 22:00 07/12/17 09:54 Namenda - PO 10 mg BID [facility] Administration Olanzapine 5 mg 07/12/17 18:00 Zyprexa - PO DAILY [facility] Radiology Results CXR no acute infiltrate/effusion noted, final read pending CTA chest No CT evidence of pulmonary embolism possible mild cardiomegaly thyromegaly Doppler, BLE venous Left leg DVT is identified, common femoral vein and greater saphenous vein. Right leg demonstrates no evidence of DVT ECG 07/11/17 16:37 Atrial flutter with 2:1 AV conduction Vent rate 151 QTC 418 07/11/17 17:27 atrial flutter with variable AV block low voltage QRS Vent rate 111 QTC 383 ASSESSMENT/PLAN: 82 year old female with dementia, HTN, and basal carcinoma of scalp admitted with palpitations; found to have new onset atrial flutter and DVT. 1. 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 ARVIND-on-CKD -Improved modestly with IVF in ED -Hold Lisinopril -Avoid nephrotoxic meds as able 3. HTN -BP at goal -Observe off medications 4. DVT -AC as above 5. Dementia -Continue Aricept, Namenda, Zyprexa -Fall risk precautions 6. UTI -Levaquin 250mg q48h (PCN ANAPHYLAXIS) 7. F/E/N -PO intake adequate -Sodium-controlled diet 8. Ppx -Therapeutic AC Dispo: Inpatient services. Visit type - Emergency Visit Emergency Visit: Yes ED Registration Date: 07/11/17 Care time: The patient presented to the Emergency Department on the above date and was hospitalized for further evaluation of their emergent condition. - New Patient This patient is new to me today: Yes Date on this admission: 07/13/17 - Critical Care Critical Care patient: No
[2017-07-12] MEDS ORDERED: CEPHALEXIN MONOHYDRATE 500 MG CAPSULE (UD) PO SCH (11:00)
[2017-07-12] MEDS ORDERED: LEVOFLOXACIN 250 MG TABLET (FP) PO SCH (12:00)
--- NOTE | 2017-07-12 12:16 | CONSULT ---
Consult Consult Specialty:: Cardiology Referred by:: Dr. Glaser Reason for Consultation:: Atrial Flutter with new DVT - History of Present Illness Chief Complaint: LE edema and dyspnea History of Present Illness: 82 yo female Known h/o HTN and basal cell carcinoma s/p removal on scalp Dementia who is largely cared for by spouse and daughter No know CV issues or prior evaluation Recent car ride to [facility] last week and [place] noted to have dyspnea and palpitations with left leg edema Drive down had 2 stops (4 hours) Sent to ED by PMD and found to have atrial flutter with acute left leg DVT Started on Enoxaparin 1mg/kg qd She has no prior CV history No prior ND or CVA No bleeding issues Walks unassisted at home but has had 2 falls in the last year according to her No prior h/o DVT in the past. 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 - Alcohol/Substance Use Hx Alcohol Use: No - Smoking History Smoking history: Never smoked Have you smoked in the past 12 months: No Home Medications - Allergies Allergies/Adverse Reactions: Allergies Allergy/AdvReac Type Severity Reaction Status Date / Time Penicillins Allergy Intermediate Hives Verified 07/11/17 16:20 shellfish derived Allergy Intermediate Hives Verified 07/11/17 16:20 Sulfa (Sulfonamide Allergy Intermediate Hives Verified 07/11/17 16:20 Antibiotics) etodolac [From [place]] Allergy Verified 07/11/17 16:20 Review of Systems - Review of Systems Cardiovascular: reports: Edema, Palpitations Respiratory: reports: SOB on Exertion Physical Exam Vital Signs: Vital Signs Temperature 98.8 F 07/12/17 05:15 Pulse Rate 97 H 07/12/17 05:15 Respiratory Rate 20 07/12/17 08:55 Blood Pressure 102/71 07/12/17 05:15 O2 Sat by Pulse Oximetry (%) 95 07/12/17 08:55 Constitutional: Yes: No Distress, Calm Eyes: Yes: WNL HENT: Yes: WNL, Atraumatic Neck: Yes: WNL, Trachea Midline Cardiovascular: Yes: Pulse Irregular Respiratory: Yes: CTA Bilaterally Gastrointestinal: Yes: WNL Musculoskeletal: Yes: WNL Extremities: Yes: WNL Edema: No Labs: CBC, BMP 07/12/17 07:55 07/12/17 07:55 Imaging - Results Cat Scan: Report Reviewed (No evidence of PE, (+) cardiomegally) EKG: Image Reviewed (Jul 11 at 16:37 aatrial flutter at 151 (2:1). Jul 12 at 01: 04 Aflutter at 4:1 (74/min).) Other: Report Reviewed (Vascular U/S: Left DVT involving left CFV and left GSV.) Assessment/Plan 82 yo female with h/o BCC Now with acute left CFV DVT and new onset atrial flutter now well rate controlled on Diltiazem PO. 1) Aflutter -Well rate controlled on PO cardizem. -Would favor MATTHEW guided DCCV but given age and co-morbidities will discuss with family her therapeutic options which include continued rate control and AC vs voodoo of NSR. -Would recommend AC given elevated [id number] = 4 (Female, age and HTN). She has had 2 prior falls in the past so options may include Dabigatran which provides the benefit of reversibility, vit K antagonist that is also reversible but would require close INR monitoring. Will discuss with family. -Had extensive discussion with her daughter (Kerrie) and she would like to treat with vit K antagonist (Coumadin) and rate control at this stage. She understand the need for INR checks and dietary restrictions and potential for RVR. She does not want to have her undergo a MATTHEW with DCCV at this time, but may reconsider at a later date. -Continue Diltiazem at 120mg ER -Would check Echo as well -Start coumadin 5mg daily 2) DVT -Unclear etiology but may be related to car ride -Would recommend anticoagulation -Discussed with daughter. -Continue Enoxaparin 1mg/kg BID for now as bridge with coumadin
[2017-07-12] MEDS ORDERED: WARFARIN NA 5 MG TABLET (UD) PO ONE (12:47)
[2017-07-12] MEDS ORDERED: WARFARIN NA 5 MG TABLET (UD) PO SCH ×2 (12:50→16:15)
[2017-07-12] MEDS ORDERED: ACETAMINOPHEN WITH CODEINE 300MG/30MG TABLET PO PRN (13:12)
[2017-07-12 14:33] LABS: CPK 36 IU/L (26-192)
[2017-07-12 15:12] LABS: TROPONIN I (DFP) < 0.03 ng/ml (0.03-0.50)
[2017-07-13 06:05] VITALS: BP 135/56; PULSE 74; TEMP 98
[2017-07-13 08:50] LABS: INR 1.13 (0.82-1.09); PROTHROMBIN TIME (PATIENT) 12.6 SEC (10.2-13.0)
[2017-07-13 08:55] LABS: BASOPHIL 0.1 % (0-2.0); EOSINOPHIL 1.7 % (0-4.5); MCH 30.7 pg (25.7-33.7); MCHC 33.7 g/dl (32.0-36.0); MEAN PLT VOLUME 8.5 fl (7.5-11.1); NEUTROPHILS 76.5 % (42.8-82.8); PLATELET COUNT 194 K/MM3 (134-434); RDW 12.6 % (11.6-15.6); WHITE BLOOD COUNT 7.2 K/mm3 (4.0-10.8)
--- NOTE | 2017-07-13 09:09 | PN ---
Physical Exam: SUBJECTIVE: Patient seen and examined. Denies chest pain, palpitations, SOB. OBJECTIVE: Out of bed and walking aroundunit with ; appears more energetic today. Vital Signs Period Temp Pulse Resp BP Sys/See Pulse Ox Last 24 Hr 98.0 F-98.8 F 74-79 18-20 108-135/56-56 95-98 GENERAL: The patient is awake, alert, oriented x 1, in no acute distress. HEAD: Normal with no signs of trauma. EYES: PERRL, extraocular movements intact, sclera anicteric, conjunctiva clear. No ptosis. ENT: Ears normal, nares patent, oropharynx clear without exudates, moist mucous membranes. NECK: Trachea midline, full range of motion, supple. LUNGS: Breath sounds equal, clear to auscultation bilaterally, no wheezes, no crackles, no accessory muscle use. HEART: Irregular rhythm, S1, S2 without murmur, rub or gallop. ABDOMEN: Soft, nontender, nondistended, normoactive bowel sounds, no guarding, no rebound, no hepatosplenomegaly, no masses. EXTREMITIES: 2+ pulses, warm, well-perfused, trace LLE edema. NEUROLOGICAL: Cranial nerves II through XII grossly intact. Normal speech, gait not observed. PSYCH: Normal mood, normal affect. SKIN: Warm, dry, normal turgor, no rashes or lesions noted Laboratory Results - last 24 hr 07/12/17 07/12/17 07/13/17 07:55 14:05 06:30 WBC 7.2 RBC 3.21 L Hgb 9.9 L Hct 29.3 L MCV 91.0 MCH 30.7 MCHC 33.7 RDW 12.6 Plt Count 194 MPV 8.5 Neutrophils % 76.5 D Lymphocytes % 15.5 D Monocytes % 6.2 Eosinophils % 1.7 Basophils % 0.1 INR Creatine Kinase 43 36 Troponin I < 0.03 L < 0.03 L 07/13/17 06:30 WBC RBC Hgb Hct MCV MCH MCHC RDW Plt Count MPV Neutrophils % Lymphocytes % Monocytes % Eosinophils % Basophils % INR 1.13 Creatine Kinase Troponin I Active Medications Generic Name Dose Route Start Last Admin Trade Name Freq PRN Reason Stop Dose Admin Diltiazem HCl 120 mg 07/12/17 12:30 07/12/17 12:45 Cardizem Cd - PO 120 mg DAILY [facility] Administration Donepezil HCl 10 mg 07/12/17 10:00 07/12/17 09:53 Aricept - PO 10 mg DAILY [facility] Administration Enoxaparin Sodium 60 mg 07/12/17 10:00 07/12/17 09:54 Lovenox - SQ 60 mg DAILY [facility] Administration Levofloxacin 250 mg 07/12/17 12:00 07/12/17 12:22 Levaquin - PO 250 mg Q48H [place] Administration Memantine 10 mg 07/11/17 22:00 07/12/17 21:10 Namenda - PO 10 mg BID [facility] Administration Olanzapine 5 mg 07/12/17 18:00 Zyprexa - PO DAILY [facility] Warfarin Sodium 5 mg 07/12/17 16:15 Coumadin - PO DAILY@1800 [facility] Radiology Results CXR no acute infiltrate/effusion noted, final read pending CTA chest No CT evidence of pulmonary embolism possible mild cardiomegaly thyromegaly Doppler, BLE venous Left leg DVT is identified, common femoral vein and greater saphenous vein. Right leg demonstrates no evidence of DVT ECG 07/11/17 16:37 Atrial flutter with 2:1 AV conduction Vent rate 151 QTC 418 07/11/17 17:27 atrial flutter with variable AV block low voltage QRS Vent rate 111 QTC 383 ASSESSMENT/PLAN: 82 year old female with dementia, HTN, and basal carcinoma of scalp admitted with palpitations; found to have new onset atrial flutter and DVT. 1. Atrial flutter, new onset -Monitor on telemetry -Cardizem CD 120mg daily -Lovenox 60mg sq once daily for CrCl 29 -Warfarin 5mg started yesterday after discussion with family/cardiology about AC preferences -Ruled out for SD 2. ARVIND-on-CKD -Improved modestly with IVF in ED -Hold Lisinopril -Avoid nephrotoxic meds as able 3. HTN -BP at goal -Observe on Cardizem only 4. DVT -AC as above 5. Dementia -Continue Aricept, Namenda, Zyprexa -Fall risk precautions 6. UTI -Levaquin 250mg q48h (PCN ANAPHYLAXIS) 7. F/E/N -PO intake adequate -Sodium-controlled diet 8. Ppx -Therapeutic AC Dispo: Inpatient services. Visit type - Emergency Visit Emergency Visit: Yes ED Registration Date: 07/11/17 Care time: The patient presented to the Emergency Department on the above date and was hospitalized for further evaluation of their emergent condition. - New Patient This patient is new to me today: No - Critical Care Critical Care patient: No
[2017-07-13 09:35] LABS: ALK PHOS 94 U/L (32-92); ANION GAP 12 (8-16); BILIRUBIN,TOTAL 0.5 mg/dl (0.2-1.0); CALCIUM 8.8 mg/dl (8.4-10.2); CO2 22 mmol/L (22-28); CREATININE 1.5 mg/dl (0.6-1.3); GLUCOSE,RANDOM 102 mg/dl (74-106); SGOT/AST 43 U/L (10-42); SGPT/ALT 64 U/L (10-40); TOT PROT 6.3 g/dl (6.4-8.3)
[2017-07-13] MEDS: MEMANTINE HCL 10 MG TABLET (FP) PO SCH (10:15)
[2017-07-13] MEDS: ENOXAPARIN NA (PORCINE) 60 MG/0.6 ML DISP.SYRIN SQ SCH (10:16)
[2017-07-13] MEDS: DONEPEZIL HCL 10 MG TABLET (FP) PO SCH (10:18)
[2017-07-13] MEDS ORDERED: PT OWN MED DRAWER 7, Y5N ONE (10:18)
--- NOTE | 2017-07-13 10:52 | DS ---
Physical Exam: SUBJECTIVE: Patient seen and examined. No chest pain, palpitations, shortness of breath, or leg pain. OBJECTIVE: Vital Signs Period Temp Pulse Resp BP Sys/See Pulse Ox Last 24 Hr 98.0 F-98.8 F 74-79 18-20 108-135/56-56 95-98 PHYSICAL EXAM GENERAL: The patient is awake, alert, oriented to name only, in no acute distress. HEAD: Normal with no signs of trauma. EYES: PERRL, extraocular movements intact, sclera anicteric, conjunctiva clear. ENT: Ears normal, nares patent, oropharynx clear without exudates, moist mucous membranes. NECK: Trachea midline, full range of motion, supple. LUNGS: Breath sounds equal, clear to auscultation bilaterally, no wheezes, no crackles, no accessory muscle use. HEART: Irregular rhythm, S1, S2 without murmur, rub or gallop. ABDOMEN: Soft, nontender, nondistended, normoactive bowel sounds, no guarding, no rebound, no hepatosplenomegaly, no masses. EXTREMITIES: 2+ pulses, warm, well-perfused. Trace LLE edema. NEUROLOGICAL: Cranial nerves II through XII grossly intact. Normal speech, gait not observed. PSYCH: Normal mood, normal affect. SKIN: Warm, dry, normal turgor, no rashes or lesions noted. LABS Laboratory Results - last 24 hr 07/12/17 07/13/17 07/13/17 14:05 06:30 06:30 WBC 7.2 RBC 3.21 L Hgb 9.9 L Hct 29.3 L MCV 91.0 MCH 30.7 MCHC 33.7 RDW 12.6 Plt Count 194 MPV 8.5 Neutrophils % 76.5 D Lymphocytes % 15.5 D Monocytes % 6.2 Eosinophils % 1.7 Basophils % 0.1 INR Sodium 135 L Potassium 4.4 Chloride 101 Carbon Dioxide 22 Anion Gap 12 BUN 31 H Creatinine 1.5 H Creat Clearance w eGFR 33.33 Random Glucose 102 Calcium 8.8 Total Bilirubin 0.5 AST 43 H D ALT 64 H D Alkaline Phosphatase 94 H Creatine Kinase 36 Troponin I < 0.03 L Total Protein 6.3 L Albumin 3.0 L 07/13/17 06:30 WBC RBC Hgb Hct MCV MCH MCHC RDW Plt Count MPV Neutrophils % Lymphocytes % Monocytes % Eosinophils % Basophils % INR 1.13 Sodium Potassium Chloride Carbon Dioxide Anion Gap BUN Creatinine Creat Clearance w eGFR Random Glucose Calcium Total Bilirubin AST ALT Alkaline Phosphatase Creatine Kinase Troponin I Total Protein Albumin Microbiology 07/11/17 18:53 Urine - Urine Clean Catch Urine Culture - Preliminary Lactose Fermenting Neg Bacilli HOSPITAL COURSE: This is an 82 year old female with a history of HTN and dementia who was brought in to the ED by her on 07/11. [place] had been [place] in [place] and the patient complained of palpitations and near syncope for four days. She did not have chest pain or shortness of breath. In the ED, the patient was noted to be in new onset atrial flutter with a ventricular rate of 150. This was initially treated with Cardizem 10mg IVP followed by 30mg q6h po with good rate control and improvement in symptoms. She had a CTA of the chest which was negative for PE. In addition, the patient had duplex ultrasound of the lower extremities which revealed a DVT involving the left common femoral and left greater saphenous veins. In consultation with the family, the patient was started on warfarin for treatment of DVT and for stroke prevention in the setting of atrial flutter. She was noted to have a UA positive for nitrites and 75 WBCs. Urine culture is growing >100,000 colonies lactose fermenting gram negative bacilli. In light of renal insufficiency and PCN anaphylaxis, she was started on Lvaquin 250mg q48h. Plan: -Discharge on warfarin with Lovenox bridge. Daughter is comfortable administering Lovenox at home. Dose will be 1mg/kg sq once daily for CrCl 29. -Continue Cardizem CD 120mg (started yesterday with good rate control). -Continue Levaquin for UTI -Follow up for INR check on Friday Return precautions reviewed with patient and family. Date of Admission:07/11/17 Date of Discharge: 07/13/17 Minutes to complete discharge: 45 Discharge Summary Reason For Visit: AFIB/DVT Current Active Problems DVT (deep venous thrombosis) (Acute) New onset atrial flutter (Acute) Condition: Improved - Instructions Diet, Activity, Other Instructions: You were treated for atrial flutter (an abnormal heart rhythm that can lead to stroke) and deep vein thrombosis, a blood clot in the leg. Continue all of your prescribed medications, with the following additions: -Coumadin once every evening to thin the blood and prevent stroke -Lovenox (shot) once a day while waiting for the Coumadin to work -Cardizem once a day to control heart rate -Levaquin every other day for UTI It is important that you see Dr. Emerson on Friday for blood work. You will also need to follow up with a payroll accounting clerk for further testing, including an echocardiogram (referral enclosed). Return here for palpitations, chest pain, shortness of breath, blood in the stool or any other abnormal bleeding, or any other concerning symptoms. Referrals: Abel Emerson MD [Primary Care Provider] - 07/15/17 (For INR check - call for appointment) Saravanan Carroll MD [Staff Physician] - 1 Week Disposition: HOME - Home Medications Comprehensive Discharge Medication List: Ambulatory Orders Diltiazem Cd [Cardizem Cd -] 120 mg PO DAILY #30 cap.cd.24h 07/13/17 Enoxaparin [Lovenox -] 60 mg SQ DAILY #7 disp.syrin 07/13/17 Levofloxacin [Levaquin -] 250 mg PO Q48H #3 tablet 07/13/17 Warfarin Na [Coumadin -] 5 mg PO DAILY@1800 #30 tablet 07/13/17 This patient is new to me today: No Emergency Visit: Yes ED Registration Date: 07/11/17 Care time: The patient presented to the Emergency Department on the above date and was hospitalized for further evaluation of their emergent condition. Critical Care patient: No - Discharge Referral Referred to [facility] Med P.C[facility] Yes Physician Referral: Abel Emerson MD (Int Med)
--- NOTE | 2017-07-15 10:34 | EKG ---
Test Reason : Blood Pressure : / mmHG Vent. Rate : 074 BPM Atrial Rate : 296 BPM P-R Int : 000 ms QRS Dur : 082 ms QT Int : 356 ms P-R-T Axes : 241 002 -55 degrees QTc Int : 395 ms ATRIAL FLUTTER WITH 4:1 A-V CONDUCTION LOW VOLTAGE QRS WHEN COMPARED WITH ECG OF 11-JUL-2017 16:37, VENT. RATE HAS DECREASED BY [address] NOW DEPRESSED IN INFERIOR LEADS ST NOW DEPRESSED IN LATERAL LEADS Confirmed by MD LORA, NASIR ([id number]) on 07/15/2017 10:34:05 AM Referred By: DR CORREA Confirmed By:NASIR PAULINO MD
--- NOTE | 2017-07-15 10:36 | EKG ---
Test Reason : Blood Pressure : / mmHG Vent. Rate : 151 BPM Atrial Rate : 302 BPM P-R Int : 000 ms QRS Dur : 078 ms QT Int : 264 ms P-R-T Axes : 031 005 040 degrees QTc Int : 418 ms POOR DATA QUALITY, INTERPRETATION MAY BE ADVERSELY AFFECTED Likely ATRIAL FLUTTER WITH 2:1 A-V CONDUCTION POSSIBLE ANTERIOR INFARCT , AGE UNDETERMINED INFERIOR INJURY PATTERN , likely acute Mi NO PREVIOUS ECGS AVAILABLE Confirmed by MD LORA, NASIR ([id number]) on 07/15/2017 10:36:06 AM Referred By: MD LANDERS Confirmed By:NASIR PAULINO MD
== END 2017-07-13 13:30 | disposition home or self-care (01) | DRG 309 ==
LOC: SUPCPDRO 16:18 → FER 16:18 → FM/S 21:56
PROVIDERS: ADMIT Internal Medicine; ATTEND Registered Nurse Emergency
DX: I48.91 Unspecified atrial fibrillation (principal); I82.412 Acute embolism and thrombosis of left femoral vein; N17.9 Acute kidney failure, unspecified; N39.0 Urinary tract infection, site not specified; I82.812 Embolism and thrombosis of superficial veins of left lower extremity; I48.92 Unspecified atrial flutter; F03.90 Unspecified dementia, unspecified severity, without behavioral disturbance, psychotic disturbance, mood disturbance, and anxiety; Z88.2 Allergy status to sulfonamides; I12.9 Hypertensive chronic kidney disease with stage 1 through stage 4 chronic kidney disease, or unspecified chronic kidney disease; N18.9 Chronic kidney disease, unspecified; H26.9 Unspecified cataract; Z88.0 Allergy status to penicillin; Z91.013 Allergy to seafood; E03.9 Hypothyroidism, unspecified
CPT/HCPCS: 36415; 71010-TC; 71275-TC; 80048; 80053; 81003; 81015; 82272; 83735; 83880; 84100; 84443; 84484; 85025; 85610; 85730; 86850; 86900; 86901; 87086; 87186; 93005; 93970-TC; 99284-25